=== PATIENT | male | born 2000 | race African-American/Black ===

== ENCOUNTER 2022-07-24 23:01 | Emergency (ER) | payer SELFPAY ==
[2022-07-24 23:02] VITALS: BP 138/86; PULSE 70; RESP 16; TEMP 36.7; O2SAT 98; BMI 27.7
--- NOTE | 2022-07-24 23:34 | CT_ITS ---
EXAM: CT ABDOMEN AND PELVIS WITH INTRAVENOUS CONTRAST CLINICAL INDICATION: RLQ pain TECHNIQUE: Helically acquired images were obtained of the abdomen and pelvis with intravenous contrast. This CT exam was performed using one or more of the following dose reduction techniques: automated exposure control, adjustment of the mA and/or kV according to patient size, and/or use of iterative reconstruction technique. This report was created using [employer] report generation technology. CONTRAST: IV 100mL [id number]-370 RADIATION DOSE: Total DLP: 971.37 mGy-cm. COMPARISON: None. FINDINGS: LOWER THORAX: Unremarkable. Lung bases are clear. No cardiomegaly. No significant pericardial effusion. ABDOMEN: LIVER: Mild periportal lucency noted within the liver, a nonspecific finding which can be due to rapid hydration. GALLBLADDER AND BILE DUCTS: Gallbladder is partially contracted. No calcified gallstones, wall thickening, pericholecystic stranding or biliary ductal dilatation. PANCREAS: Unremarkable. No focal cystic or solid mass. SPLEEN: Unremarkable. Normal size without focal cystic or solid mass. ADRENALS: Unremarkable. No nodules. KIDNEYS AND URETERS: Unremarkable. Normal renal size and position. No hydronephrosis. No renal or obstructing ureteral stones. STOMACH AND BOWEL: Unremarkable. No stomach or bowel distention. No focal inflammatory change. PELVIS: APPENDIX: The appendix is visualized and is normal in size. The appendix contains gas and retained high-density material. No findings of acute appendicitis. BLADDER: The partially distended urinary bladder is unremarkable. REPRODUCTIVE: Unremarkable as visualized. No mass. ABDOMEN and PELVIS: INTRAPERITONEAL SPACE: Minimal amount of nonspecific low-density free fluid is seen within the pelvis. No free air. BONES/JOINTS: Unremarkable. No suspicious lytic or blastic abnormality. SOFT TISSUES: Unremarkable. No discrete abdominal or pelvic wall hernia. VASCULATURE: Unremarkable. Abdominal aorta is non-dilated. LYMPH NODES: Multiple normal-sized lymph nodes are seen within the right lower quadrant, including pericecal nodes and nodes ventral to the right iliopsoas muscle. CT/Abdomen/Pelvis W IV Cont ONLY IMPRESSION: Normal appendix. Multiple small right lower quadrant lymph nodes, consistent with mesenteric adenitis. Electronically Signed: Stephen Lowe MD at 0:38 EDT ,
--- NOTE | 2022-07-24 23:35 | EDS_ITS ---
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 Patient states on Friday he developed a generalized abdominal ache. He states its been painful to run at football practice. Today he notes nausea that is mild. He noted that earlier he had a bowel movement that appeared normal but then developed diarrhea. He noted that on Friday he had fever. He went to the wellness center was given Pepto-Bismol but stated that seem to make things worse. He points to the generalized abdomen as the area that hurts. He denies any urinary symptoms. He denies any obvious abdominal trauma. PFSH PFSH Medical History no medical history no medical history Home Medications NK 07/24/22 [History Last Taken Unknown] Allergy/AdvReac Type Severity Reaction Status Date / Time No Known Allergies Allergy Verified 07/24/22 23:05 Surgical History no surgical history no surgical history Social History (Updated 07/24/22 @ 23:[address] Barry Lyn, DO) current occupational status: student Smoking Status: Never smoker ROS ROS ED Constitutional Constitutional ED: Denies chills or weight loss Eyes Eyes: Denies change in vision or diplopia ENT ENT ED: Denies ear pain, rhinorrhea or sore throat Cardiovascular Cardiovascular: Denies chest pain, orthopnea, palpitations or racing heartbeat Respiratory/Chest Respiratory/Chest: Denies cough, dyspnea or orthopnea Gastrointestinal Gastrointestinal: Reports abdominal pain, diarrhea and nausea; Denies constipation or vomiting Genitourinary Genitourinary ED: Denies dysuria, hematuria or urinary frequency Musculoskeletal Musculoskeletal: Denies arthralgias or myalgias Integumentary Denies abscess or rash Neurologic Neurologic: Denies headache(s) or weakness Psychiatric Psychiatric: Denies anxiety, depression, suicidal ideation or suicidal thoughts Endocrine Endocrinology: Denies polydipsia, polyphagia or polyuria Allergic/Immunologic Allergic/Immunologic ED: Denies mouth swelling, tongue swelling or urticaria EXAM Physical Exam Const Vital Signs: 07/24/22 23:02 Temperature 98.1 F Temperature Source Temporal Pulse Rate 70 Respiratory Rate 16 Blood Pressure 138/86 H Blood Pressure Mean 103 Pulse Ox 98 Oxygen Delivery Method Room Air Positive well nourished and well developed General Appearance ED: well developed HEENT Reports normocephalic, head/scalp atraumatic and moist mucous membranes Eyes PERRL and EOMs intact bilaterally Neck no lymphadenopathy, supple and no JVD Resp normal respiratory effort and clear to auscultation bilaterally Cardio regular rate, regular rhythm and no murmurs GI Negative for hepatosplenomegaly Inspection: Negative for abdominal distention Auscultation: normoactive bowel sounds Palpation: soft and tender RLQ; Negative for guarding or rebound tenderness present Back/Spine no CVA tenderness and normal ROM Extremity normal to inspection General Extremety ED: Negative for edema General Extremity: Negative for edema Neuro oriented x3 and CN's II-XII intact bilaterally Sensorium / Orientation: alert Motor Exam: strength 5/5 throughout Psych mental status grossly normal Mood & Affect: Negative for depressed or tearful Skin no rashes or lesions noted and no wounds MDM MDM MDM Narrative Medical decision making narrative: Patient's white count is 5.8. CMP shows a AST of 43 and alk phos of 129. Because of the right lower quadrant abdominal pain a CT of the abdomen pelvis was obtained. This was negative for appendicitis. It did show several enlarged lymph nodes consistent with a mesenteric adenitis. At this time I think the patient can be discharged safely home. Instructions for anti-inflammatories or Tylenol for pain. Hydration return if worsening or concerns. He was advised he may continue to have diarrhea until the viral illness is resolved. Lab Data Attestation: I reviewed the patient's lab results. Labs: Laboratory Results - last 24 hr 07/24/22 07/24/22 23:22 23:22 WBC 5.8 RBC 5.11 Hgb 13.3 Hct 40.0 MCV 78.3 L MCH 26.0 L MCHC 33.3 RDW Std Deviation 39.7 RDW Coeff of Jackie 14.0 Plt Count 266 MPV 10.1 Immature Gran % (Auto) 0.200 Neut % (Auto) 61.1 Lymph % (Auto) 27.5 [place] % (Auto) 8.6 Eos % (Auto) 2.1 Baso % (Auto) 0.5 Absolute Neuts (auto) 3.6 Absolute Lymphs (auto) 1.60 Nucleated RBC % 0 Sodium 139 Potassium 3.9 Chloride 106 Carbon Dioxide 29.0 Anion Gap 4 L BUN 10 Creatinine 1.09 Estim Creat Clear Calc 124.64 Est GFR (MDRD) Af Amer 110 Est GFR (MDRD) Non-Af 91 BUN/Creatinine Ratio 9.2 L Glucose 101 Calcium 8.8 Total Bilirubin 0.30 AST 43 H ALT 37 Alkaline Phosphatase 129 H Total Protein 7.4 Albumin 3.8 Globulin 3.6 Albumin/Globulin Ratio 1.1 Lipase 86 Radiography Diagnostic Testing: Clinical Impression(s) from Imaging Studies Abdomen/Pelvis CT 07/24/22 23:34 IMPRESSION: Normal appendix. Multiple small right lower quadrant lymph nodes, consistent with mesenteric adenitis. Electronically Signed: Stephen Lowe MD at 0:38 EDT , Discharge Plan Triage Chief Complaint: Abd Pain ED Provider: Barry Lyn Dx/Rx/DC Orders Clinical Impression: Abdominal pain, Nausea, Acute mesenteric adenitis Instructions: ED Adenitis, Mesenteric Prescriptions: No Action NK Primary Care Provider: Care Physician,No Primary Disposition Disposition: Home, Self Care
[2022-07-24] MEDS: Ketorolac 30 MG/ML Syringe IV (23:39)
[2022-07-24 23:45] LABS: Absolute Neutrophil Count 3.6 X10^3/uL (2.0-7.7); Basophil# 0.03 X10^3/uL; Basophil% 0.5 % (0-1); Eosinophil# 0.12 X10^3/uL; Eosinophils% 2.1 % (0-5); Hemoglobin 13.3 g/dL (13.0-16.5); Lymphocyte % 27.5 % (19-41); Mean Corp Hgb Conc 33.3 g/dL (32-36); Mean Corpuscular Volume 78.3 fL (80-94); Mean Platelet Vol. 10.1 fl (6.2-12.0); Monocyte% 8.6 % (0-10); NRBC Flagged by Analyzer 0 % (0-5); Neutrophil # 3.56 X10^3/uL (2.7-7.7); Neutrophil % 61.1 % (47-70); Platelet Count 266 K/mm3 (150-450); RBC Distribution Width SD 39.7 fl (35.1-43.9); Red Blood Count 5.11 M/mm3 (4.6-6.2); White Blood Count 5.8 K/mm3 (4.4-11.0)
[2022-07-25 00:12] LABS: ALB/GLOB Ratio 1.1 RATIO (0.9-2.4); AST(SGOT) 43 U/L (15-37); Alanine Aminotransfer ALT/SGPT 37 U/L (16-61); Albumin, Serum 3.8 g/dL (3.2-5.0); Alkaline Phosphatase 129 U/L (45-117); Anion Gap 4 (5-15); BUN 10 mg/dL (7-18); BUN/Creat Ratio 9.2 RATIO (10-20); Calcium,Total 8.8 mg/dL (8.5-10.1); Chloride 106 mmol/L (98-107); Creatinine, Serum 1.09 mg/dL (0.70-1.30); EST Glomerular Filtration Rate 91 mL/min (>60); Est Glom Filt Rate - Afr Amer 110 mL/min (>60); Estimated Creatinine Clearance 124.64 ml/min; Globulin 3.6 g/dL (2.2-4.2); Glucose 101 mg/dL (74-106); Lipase 86 U/L (73-393); Potassium 3.9 mmol/L (3.5-5.1); Protein, Total 7.4 g/dL (6.4-8.2); Sodium Level 139 mmol/L (136-145)
[2022-07-25 00:51] VITALS: BP 122/74; PULSE 68; RESP 17; O2SAT 98
== END 2022-07-25 00:51 | disposition home or self-care (01) ==
PROVIDERS: Emergency Provider Emergency Medicine; Visit Provider Emergency Medicine
DX: R10.9 Unspecified abdominal pain (principal); R11.0 Nausea; I88.0 Nonspecific mesenteric lymphadenitis
CPT/HCPCS: 74177; 80053; 83690; 85025; 96374; 99282; Q9967; A4216

== ENCOUNTER 2022-08-06 15:10 | Emergency (ER) | payer SELFPAY ==
[2022-08-06] VITALS (10 sets, daily range): BP systolic 132–175; BP diastolic 70–90; PULSE 69–90; RESP 12–27; TEMP 36.1; O2SAT 99–100; BMI 27.8
--- NOTE | 2022-08-06 15:24 | EX.ED.SAOD ---
HPI History of Present Illness Chief Complaint: Overdose Informant: patient and friend Onset/Context/Timing Onset: Today Context: Sudden Onset Timing: Continuous Worsened by: Nothing Relieved by: Nothing Associated Symptoms Associated Symptoms: Positive for suicidal ideation; Negative for vomiting*, diarrhea*, fever*, rash*, seizure, tremor, palpatations, change in mental status, trauma or homicidal ideation Narrative Narrative: Patient present after taking approximately 30 Unisom tablets. Patient states he took them because I have a lot of things going on. Patient states he is under a lot of stress. Patient states he took these approximately 30 minutes prior to arrival. Patient states he feels sleepy. Patient denies any fevers or chills. Patient denies any abdominal pain. Patient denies any nausea or vomiting. Patient denies any chest pain or shortness of breath. [facility] Medical History (Updated 08/06/22 @ 22:[address] Pardeep Dillon DO) No acute medical problems Suicidal ideation Medical History no medical history no medical history Home Medications NK 07/24/22 [History Last Taken Unknown] Allergy/AdvReac Type Severity Reaction Status Date / Time No Known Allergies Allergy Verified 08/06/22 15:16 Surgical History no surgical history no surgical history Social History current occupational status: student Smoking Status: Never smoker ROS ROS ED Constitutional Constitutional ED: Denies chills or fever(s) Eyes Eyes: Denies blurry vision or change in vision ENT ENT ED: Denies rhinorrhea or sore throat Cardiovascular Cardiovascular: Denies chest pain or palpitations Respiratory/Chest Respiratory/Chest: Denies cough or dyspnea Gastrointestinal Gastrointestinal: Denies nausea or vomiting Genitourinary Genitourinary ED: Denies dysuria or hematuria Musculoskeletal Musculoskeletal: Denies back pain or neck pain Integumentary Denies abscess or rash Neurologic Neurologic: Denies headache(s) or weakness Psychiatric Psychiatric: Reports suicidal ideation and suicidal thoughts Allergic/Immunologic Allergic/Immunologic ED: Denies mouth swelling or urticaria EXAM Physical Exam Const Vital Signs: 08/06/22 15:12 08/06/22 15:16 08/06/22 16:16 Temperature 97.0 F L 97.0 F L Temperature Source Temporal Temporal Pulse Rate 90 86 84 Respiratory Rate 27 H 17 16 Blood Pressure 175/90 H 175/90 H 143/70 H Blood Pressure Mean 118 118 94 Pulse Ox 100 100 100 Oxygen Delivery Method Room Air Room Air Room Air 08/06/22 17:23 08/06/22 18:03 08/06/22 19:07 Temperature Temperature Source Pulse Rate 83 Respiratory Rate 16 16 16 Blood Pressure 142/81 H Blood Pressure Mean 101 Pulse Ox 100 Oxygen Delivery Method Room Air Room Air Room Air 08/06/22 20:00 08/06/22 21:07 08/06/22 22:07 Temperature Temperature Source Pulse Rate 69 71 Respiratory Rate 15 12 15 Blood Pressure 132/71 H 145/75 H Blood Pressure Mean 91 98 Pulse Ox 100 99 Oxygen Delivery Method Room Air Room Air Room Air Positive well nourished and well developed General Appearance ED: well developed HEENT Reports moist mucous membranes Neck supple and no JVD Resp normal respiratory effort and clear to auscultation bilaterally Cardio regular rate, regular rhythm and no murmurs GI normal to inspection, nondistended, normoactive bowel sounds and non-tender Palpation: soft Extremity normal to inspection General Extremety ED: Negative for edema or tenderness General Extremity: Negative for edema Neuro oriented x3, CN's II-XII intact bilaterally and no sensory deficits noted Sensorium / Orientation: alert Motor Exam: strength 5/5 throughout Psych Attitude: withdrawn Activity / Motor Behavior: avoids eye contact Speech: soft Mood & Affect: depressed and flat affect Skin no rashes or lesions noted MDM MDM MDM Narrative Medical decision making narrative: Suicide precautions were maintained. EKG was obtained. On my interpretation, it shows a normal sinus rhythm with a rate of 97. NH interval, QRS interval, and QTc intervals are within normal limits. [place] is normal. There are nonspecific ST-T wave changes in the inferior leads. There are no prior EKGs available for comparison. CBC was within normal limits. Comprehensive metabolic profile was within normal limits. Salicylate level was normal. Urinalysis does not show any evidence of urinary tract infection or hematuria. Urine tox screen was negative. Serum alcohol level was normal. Acetaminophen level was ordered and is pending. Patient denies taking any acetaminophen. On reevaluation after observation for 6 hours, patient is showing no signs of anticholinergic toxidrome. Social work evaluated the patient and felt that the patient would need inpatient treatment. [facility]. Patient is medically cleared for psychiatric placement. Patient will need to be transferred to [facility] when he is accepted there and a bed becomes available. Patient understands and is agreeable with the plan. All questions were answered. Lab Data Attestation: I reviewed the patient's lab results. Labs: Laboratory Results - last 24 hr 08/06/22 08/06/22 08/06/22 15:54 15:54 15:54 WBC 6.1 RBC 5.52 Hgb 14.4 Hct 43.3 MCV 78.4 L MCH 26.1 L MCHC 33.3 RDW Std Deviation 40.8 RDW Coeff of Jackie 14.3 Plt Count 339 MPV 9.5 Immature Gran % (Auto) 0.300 Neut % (Auto) 54.4 Lymph % (Auto) 35.9 [place] % (Auto) 8.4 Eos % (Auto) 0.5 Baso % (Auto) 0.5 Absolute Neuts (auto) 3.3 Absolute Lymphs (auto) 2.18 Nucleated RBC % 0 Sodium 141 Potassium 3.5 Chloride 106 Carbon Dioxide 27.0 Anion Gap 8 BUN 13 Creatinine 1.23 Estim Creat Clear Calc 110.45 Est GFR (MDRD) Af Amer 95 Est GFR (MDRD) Non-Af 79 BUN/Creatinine Ratio 10.6 Glucose 140 H Calcium 9.5 Total Bilirubin 0.40 Direct Bilirubin AST 20 ALT 32 Alkaline Phosphatase 155 H Total Protein 8.4 H Albumin 4.4 Globulin 4.0 Albumin/Globulin Ratio 1.1 Urine Color Urine Clarity Urine pH Ur Specific [place] Urine Protein Urine Glucose (UA) Urine Ketones Urine Occult Blood Urine Nitrite Urine Bilirubin Urine Urobilinogen Ur Leukocyte Esterase Urine RBC Urine WBC Ur Squamous Epith Cells Urine Bacteria Urine Mucus Salicylates < 1.7 L Urine Opiates Screen Urine Methadone Screen Acetaminophen Cancelled Ur Barbiturates Screen Ur Phencyclidine Scrn Ur Amphetamines Screen MDMA (Ecstasy) Screen U Benzodiazepines Scrn Urine Cocaine Screen U Cannabinoids Screen Ur Drug Screen Comment Ethyl Alcohol < 3.0 08/06/22 08/06/22 08/06/22 15:54 16:08 16:08 WBC RBC Hgb Hct MCV MCH MCHC RDW Std Deviation RDW Coeff of Jackie Plt Count MPV Immature Gran % (Auto) Neut % (Auto) Lymph % (Auto) [place] % (Auto) Eos % (Auto) Baso % (Auto) Absolute Neuts (auto) Absolute Lymphs (auto) Nucleated RBC % Sodium Potassium Chloride Carbon Dioxide Anion Gap BUN Creatinine Estim Creat Clear Calc Est GFR (MDRD) Af Amer Est GFR (MDRD) Non-Af BUN/Creatinine Ratio Glucose Calcium Total Bilirubin 0.40 Direct Bilirubin 0.14 AST 22 ALT 31 Alkaline Phosphatase 157 H Total Protein 8.3 H Albumin 4.4 Globulin 3.9 Albumin/Globulin Ratio Urine Color Yellow Urine Clarity Clear Urine pH 6.0 Ur Specific [place] 1.010 Urine Protein Negative Urine Glucose (UA) Normal Urine Ketones Negative Urine Occult Blood Negative Urine Nitrite Negative Urine Bilirubin Negative Urine Urobilinogen Normal Ur Leukocyte Esterase 100 H Urine RBC 0 SEEN Urine WBC 0-5 SEEN Ur Squamous Epith Cells 0 SEEN Urine Bacteria 0 SEEN Urine Mucus 0 SEEN Salicylates Urine Opiates Screen NEGATIVE Urine Methadone Screen NEGATIVE Acetaminophen Ur Barbiturates Screen NEGATIVE Ur Phencyclidine Scrn NEGATIVE Ur Amphetamines Screen NEGATIVE MDMA (Ecstasy) Screen NEGATIVE U Benzodiazepines Scrn NEGATIVE Urine Cocaine Screen NEGATIVE U Cannabinoids Screen NEGATIVE Ur Drug Screen Comment Ethyl Alcohol Discharge Plan Triage Chief Complaint: Overdose ED Provider: Pardeep Dillon Dx/Rx/DC Orders Clinical Impression: Suicidal ideation, Anticholinergic drug overdose, Major depression Prescriptions: No Action NK Primary Care Provider: Mendel Devlin Referrals: Care Physician,No Primary [Non-Staff] - Disposition Disposition: Psychiatric Hospital or Unit Discharge Location: [facility]
--- NOTE | 2022-08-06 15:32 | EKG12_ITS ---
Test Reason : OD Blood Pressure : / mmHG Vent. Rate : 097 BPM Atrial Rate : 097 BPM P-R Int : 146 ms QRS Dur : 100 ms QT Int : 374 ms P-R-T Axes : 056 079 000 degrees QTc Int : 474 ms Normal sinus rhythm Nonspecific ST-T Changes Prolonged QT Abnormal ECG No previous ECGs available Confirmed by ANGEL BRAND, MUNA ([id number]), film and video editor BRANDON BLAS ([id number]) on 08/08/2022 1:02:43 PM Referred By: NAOMI Confirmed By:HUMPHREY ORTIZ MD
--- NOTE | 2022-08-06 15:40 | NURSING ---
NO OLD EKGS
[2022-08-06 16:08] LABS: Absolute Lymphocyte Count 2.18 X10^3/uL (0.83-4.51); Absolute Neutrophil Count 3.3 X10^3/uL (2.0-7.7); Basophil# 0.03 X10^3/uL; Basophil% 0.5 % (0-1); Eosinophil# 0.03 X10^3/uL; Eosinophils% 0.5 % (0-5); Hematocrit 43.3 % (40-54); Hemoglobin 14.4 g/dL (13.0-16.5); Lymphocyte # 2.18 X10^3/ul (0.83-4.51); Lymphocyte % 35.9 % (19-41); Mean Corp Hgb Conc 33.3 g/dL (32-36); Mean Corpuscular Hgb 26.1 pg (27.0-32.0); Mean Corpuscular Volume 78.4 fL (80-94); Mean Platelet Vol. 9.5 fl (6.2-12.0); Monocyte# 0.51 X10^3/uL; Monocyte% 8.4 % (0-10); NRBC Flagged by Analyzer 0 % (0-5); Neutrophil # 3.31 X10^3/uL (2.7-7.7); Neutrophil % 54.4 % (47-70); Platelet Count 339 K/mm3 (150-450); RBC Distribution Width CV 14.3 % (11.6-14.6); RBC Distribution Width SD 40.8 fl (35.1-43.9); Red Blood Count 5.52 M/mm3 (4.6-6.2); White Blood Count 6.1 K/mm3 (4.4-11.0)
[2022-08-06 16:14] LABS: Bacteria 0 SEEN /hpf (None Seen); Mucous, Urine 0 SEEN /hpf (<or=2+); Red Blood Cells-Urine 0 SEEN /hpf (0-5); Squamous Epithelial Cells - UA 0 SEEN /hpf (0-5)
[2022-08-06 16:21] LABS: Color, Urine Yellow (Yellow); Glucose, Dipstick Normal (Normal); Ketone-Dipstick Negative (Negative); Leukocyte Esterase-Dipstick 100 /ul (Negative); Nitrite-Dipstick Negative (Negative); Occult Blood-Urine Negative /ul (Negative); Protein-Dipstick Negative (Negative); Urine Bilirubin Dipstick Negative (Negative); Urine Clarity Clear (Clear); Urine Urobilinogen Normal (Normal)
[2022-08-06 16:27] LABS: ALB/GLOB Ratio 1.1 RATIO (0.9-2.4); AST(SGOT) 20 U/L (15-37); Alanine Aminotransfer ALT/SGPT 32 U/L (16-61); Albumin, Serum 4.4 g/dL (3.2-5.0); Alkaline Phosphatase 155 U/L (45-117); Anion Gap 8 (5-15); BUN 13 mg/dL (7-18); BUN/Creat Ratio 10.6 RATIO (10-20); Calcium,Total 9.5 mg/dL (8.5-10.1); Chloride 106 mmol/L (98-107); Creatinine, Serum 1.23 mg/dL (0.70-1.30); EST Glomerular Filtration Rate 79 mL/min (>60); Est Glom Filt Rate - Afr Amer 95 mL/min (>60); Estimated Creatinine Clearance 110.45 ml/min; Glucose 140 mg/dL (74-106); Potassium 3.5 mmol/L (3.5-5.1); Protein, Total 8.4 g/dL (6.4-8.2); Sodium Level 141 mmol/L (136-145)
[2022-08-06 16:32] LABS: White Blood Cells 0-5 SEEN /hpf (0-5)
[2022-08-06 17:02] LABS: Amphetamine Urine VISTA NEGATIVE (<1000 ng/mL); Barbiturate Urine VISTA NEGATIVE (< 200 ng/mL); Benzodiazepine Urine VISTA NEGATIVE (< 200 ng/mL); Cocaine Urine VISTA NEGATIVE (< 300 ng/mL); Ecstacy Urine VISTA NEGATIVE (< 500 ng/mL); Methadone Urine VISTA NEGATIVE (< 300 ng/mL); PCP Urine VISTA NEGATIVE (< 25 ng/mL); THC Urine VISTA NEGATIVE (< 50 ng/mL); Vista UDS pH Range 6
[2022-08-06 17:40] LABS: Alcohol, Blood (Medical)-Serum < 3.0 mg/dL; Salicylate < 1.7 mg/dL (2.8-20.0)
--- NOTE | 2022-08-06 18:15 | ED.RN ---
THIS RN CALLED LAB AT 1750 AND SPOKE TO ROLANDO TO CHECK ON ACETAMINOPHEN LAB VALUE. LAB REPORTS THAT CHEMISTRY UNABLE TO RUN HERE AND SPECIMEN SENT TO [facility]. DR. FOWLER NOTIFIED AND ASKED THIS RN TO CALL BACK AND ASK FOR A TIMEFRAME. ROLANDO FROM LAB CALLED BACK TO SAY [facility] DID NOT GIVE TIMEFRAME. DR. FOWLER NOTIFIED AT [id number].
--- NOTE | 2022-08-06 18:25 | CM.ED ---
SW was advised by that patient will need awhile to be medically clear. SW briefly spoke to patient and updated him that this medical technical writer or crisis will speak to him. EL called [facility]. They do not take out of state medicaid. EL called Elizabeth at [facility]. They don't work with out of state medicaid. SW called [facility] and spoke to Socoror. They will speak to social workers about if they take [place] Medicaid. SW called [facility]. Staff advised that they do not take out of state medicaid. SW called [facility] and spoke t Sakshi and she said that they do not take any out of state medicaid. SW called [facility] and spoke to Nola. Nola said that if patient has out of state medicaid and are in their ED they work with patient however, they do not take patient's from outside hospital with out of state medicaid. Plus, they have no bed. EL called Christine at [facility]. They do not take [place] medicaid and said that they refer [place] of state patient's to [place]. EL called Jeannette at [facility]. For out of state medicaid they need to contact [facility] after the assessment is completed and after patient is medically cleared. Lilli SALDAÑA
--- NOTE | 2022-08-06 19:28 | CM.ED ---
Addendum entered by Lilli Alejandrader 08/06/22 19:55: Patient presented to the ED as the police were dispatched to [facility] at the [facility] for a male that had recently attempted suicide. Upon my arriva I met with Brian Deleon. Brian recently went through a breakup and explained that he took several sleeping medications in an attempt to kill himself. Diagnosis: Major Depressive Disorder Lilli Bowling COMPREHENSIVE ADVISOR LISWS Original Note: EL Note Referral Source: MD Referral Reason: Suicide Attempt SW met with patient and his friend, Endy, in ED room 4. Patient gave this automatic typewriter inspector verbal consent to speak to him in the presence of his friend and requested his friend stay in the room. Patient said I got alot going on... school.. not transitioning with life after a relationship ended and life after college. Patient said that his girlfriend left him and he felt nothing really matters. Patient and his girlfriend, Freda, had been together for 11 months. Patient said that he and Freda broke up last week and tried to work it out. SW asked patient if there was a trigger and patient said I felt like life had no meaning or purpose. SW asked patient if he wanted to and he said I did.. but I also regret it. Marital Status: Single Identified Gender: Male Sexual Orientation: Heterosexual Living Situation: [facility]. [facility] Support/Resource: Patient voices that he doesn't talk to anybody... I won't talk History: None Education and Employment History: Patient graduated high school. No learning issues. 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 Mental Health Treatment and Counseling: Patient reports he went to [facility] (AOD treatment) approximately 1 year ago. Patient said that he has done individual teletherapy through the [facility] with the last session being 2-3 weeks ago. Patient said that last week he and his ex girlfriend, Freda, went to couples counseling 1x. Patient reports he has never had psych hospitalization. He reports no current psychiatric medication. Patient said that schizophrenia and anxiety run in his family. Patient said that his dad has schizophrenia but he is unsure if he has been hospitalized. Triggers and Stressors: Patient said relationship ending, people giving up... people stop fighting and giving up. 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 Patient said that previously he would do cbd oil, hot tea or a glass of wine. However, patient reports he is sober and when asked how long he has been sober he said stopped counting but said it was at the beginning of the summer. Patient said that currently he drinks hot tea. Abuse Issues: Patient denied history or physical, sexual or emotional abuse. Substance Abuse: Patient reports I don't do wine or CBD. Risk to Self and Others Suicidal: Patient said that he overdosed after he and Freda spoke today. Patient said it really wasn't her fault.. everything in my life is overwhelming.. not her.. everything. Plans: Patient said that he began researching how to complete suicide before the semester started. Patient said that he researched on line today how to take a lethal dose. Patient denied HI and Violence to self, others and objects. Patient said that before he went to sleep after the OD he saw what looked like smoke and I was hallucinating intensely. Patient said it was peaceful when I OD. Patient said that heheard noised and that he was being talked to but couldn't understand it. Patient said it could be the drug. SW asked patient about hallucinations prior to his OD today and patient said it was light hallucinations.. normal stuff. SW asked patient to explain and he said just like did you say something and things moved. MSE Orientation x4 Memory: Good Appearance: Clean and Appropriate Mood and Affect: Depressed mood with flat affect. Tearful at times during the assessment. Communication Pattern: Responds to questions Thought Process: Appropriate. No evidence of AH/VH Insight: Fair Judgement: Poor SW spoke to MD Dillon to consult on the case and he agrees that patient needs inpatient psych hospitalization for crisis stabilization and med management. Plan: Inpatient psych
--- NOTE | 2022-08-06 20:02 | CM.ED ---
EL called Blu at [facility]. Blu said that they need the referral packet and the diagnosis and then fax packet to [phone]. Once patient is approved he will go to [place]. EL asked about visitor policy and Blu said that they had alot of covid so he assume that there is no visitors. EL spoke to Vic and requested EKG and all [place] lab work to be completed for patient. EL called Jeannette at [facility] and updated her regarding the situation. She requested the referral be faxed to her. EL faxed the referral packet to her. Vic RN advised that patient's final lab work is not bad yet. When all lab work is back and MD notes state that patient is medically clear the referral packet needs to be faxed to [facility] at [phone] Plan: Inpatient psych
[2022-08-06 20:35] LABS: AST(SGOT) 22 U/L (15-37); Alanine Aminotransfer ALT/SGPT 31 U/L (16-61); Albumin, Serum 4.4 g/dL (3.2-5.0); Alkaline Phosphatase 157 U/L (45-117); Bilirubin, Direct 0.14 mg/dL (0.00-0.30); Globulin 3.9 g/dL (2.2-4.2); Protein, Total 8.3 g/dL (6.4-8.2)
--- NOTE | 2022-08-06 20:51 | ED.RN ---
Poison control called requesting update. Update given. Poison control stating they are closing case. Requesting to be called if Tylenol level comes back elevated.
[2022-08-06 22:45] LABS: Acetaminophen (Tylenol) Level < 2.0 ug/mL (10.0-30.0)
--- NOTE | 2022-08-06 23:06 | ED.RN ---
[facility] called back and spoke to [facility], they currently have no male beds at this time. Therefore no bed placement at this time. Social work and enid will have to follow up in the morning to check bed status at [facility]. full chart faxed to [facility] at this time
--- NOTE | 2022-08-06 23:37 | ED.RN ---
THIS RN SPOKE TO PTS BROTHER AT [id number]. PTS BROTHER REQUESTS NURSE ON STAFF CALLS HIM WHEN PT IS TRANSPORTED. PTS BROTHER IS DINO COTTON PHONE NUMBER [phone].
[2022-08-07] VITALS (17 sets, daily range): BP systolic 99–147; BP diastolic 51–78; PULSE 52–71; RESP 14–19; TEMP 36.6; O2SAT 97–100
--- NOTE | 2022-08-07 04:41 | ED.RN ---
SEE DOWN TIME CHARTING FROM [phone]
--- NOTE | 2022-08-07 10:11 | CM.ED ---
EL Note EL received voice mail from Jeannette stating that patient needs bed days [facility] EL called Ashlee at [facility]. She was on the phone with the hospital. EL was updated by bankman Stacey who stated that she spoke to Ashlee at [facility]. EL called Ashlee at [facility]. Ashlee said that she needs to check with Gisela regarding patient and placement. Plan: Inpatient psych Lilli SALDAÑA
--- NOTE | 2022-08-07 10:23 | CM.ED ---
Addendum entered by Lilli Bowling 08/07/22 11:37: EL called Navya at 11:35am anad again voice mail said that person can't accept calls. Original Note: Late Entry:EL met with patient On 08/06/22 he gave verbal consent to speak to [facility] personal and update him on his status. SW received call from a woman identifying herself as his fiance'. She inquired as to if patient had been transferred and where he had gone. As this song writer did not have a TED so worker advised that this song writer will call her back. She provided number of [phone]. EL met with patient. He gave consent to talk to Navya, his ex girlfriend. EL called Navya's number [phone]. EL called number 2 x and the voicwemail said that it cannot accept calls at this time. Lilli SALDAÑA
--- NOTE | 2022-08-07 14:25 | CM.ED ---
Addendum entered by Lilli Bowling 08/07/22 16:17: EL contacted Ashlee and asked for an update. No response. EL contacted Gisela. She had no update. EL received call from Gisela. She said that since the are requesting state funds that the [facility] needs to do the assessment. Gisela said that Patricia can do it but she will be doing it from home as she is sick. EL advised that was fine. EL updated strategy planning consultant Mckenna and JOANNA Monzon. EL updated patient. EL advised that Tamara Benitez from [facility] had called and requested update and health care social worker provided it. SW asked about his girlfriend/ex girlfriend/ fiance phone number and he said that he did not know it. EL updated patient that [facility] would be calling him for an assessment. EL updated Gail Burr. Addendum entered by Lilli Bowling 08/07/22 14:35: Tamara Benitez, interim director at the [facility] at the [facility]. Patient had given this narrative writer verbal consent to speak to [facility] staff. EL updated that patient is still at the ED awaiting placement. Plan: Inpatient psych Lilli SALDAÑA Original Note: EL Note EL called Ashlee at [facility]. She said that she spoke to Melba at [place], who was a field pipelines supervisor, and Melba said that she had not received the information so Ashlee had faxed it to her. EL asked Ashlee to follow up with Merrick. Lilli SALDAÑA
--- NOTE | 2022-08-07 18:59 | CM.ED ---
EL Note EL called Jeannette and spoke to Jeannette. She reports that she faxed the social sciences instructor assessment from [facility] to Melba at [place]. EL called Melba at [place] [phone]. Melba said that she never got the fax. EL confirmed the fax number [phone]. Melba said that they first must have to attempt [facility] for patient and if the wait list is to long at [facility] then they can look at other options. EL called Jeannette at [facility] again and she said that she had faxed the assessment and had gotten a fax confirmation sheet. She stated that she will refax the assessment to [facility]. Lilli SALDAÑA
--- NOTE | 2022-08-07 20:03 | CM.ED ---
EL Note EL called Melba at [place] 2x. EL left message after calling the first time. EL did not leave voicemail the second time because I had already left a voice mail on the previous contact. EL called Jeannette at [facility]. She is not available. EL left message to contact this commercial underwriter. Lilli SALDAÑA
[2022-08-08] VITALS (17 sets, daily range): BP systolic 129–138; BP diastolic 67–74; PULSE 61–91; RESP 14–18; TEMP 36.8; O2SAT 99–100
--- NOTE | 2022-08-08 09:56 | CM.ED ---
Social Work Emergency Department Spoke with Gisela from [facility] who reports Merrick gave approval for patient to go go [facility]. Gisela reports to have spoken to Edith at [facility] and patient is next on the list for admission. Anticipate bed opening for patient later today. ED staff aware of this update as well. Plan: [facility] pending bed availability. -PIOTR Cornejo, FORENSICS TEAM DIRECTOR
--- NOTE | 2022-08-08 11:17 | ED.RN ---
BAG OF PILLS FOUND WITH PATIENT, DAVE AUGUSTE REMOVED FROM ROOM AND PLACED WITH BELONGINGS
--- NOTE | 2022-08-08 12:37 | ED.RN ---
[facility] called and requested vital signs for yesterday and today
--- NOTE | 2022-08-08 14:16 | NURSING ---
SPOKE WITH CRISTIAN FROM [facility] ETA OF 90 MINUTES AT THIS TIME
--- NOTE | 2022-08-09 10:47 | CM.ED ---
EL called Ashlee at [facility]. Ashlee said that patient went to [facility]. EL received voice mail from Tamara Benitez at [facility] and Chrissy Hinojosa, counselor at [facility] regarding patient. EL called Tamara Benitez on her personal phone [phone].NO answer and voicemail said that the voicemail was full. EL called Meli Hinojosa at [phone]. EL updated Meli that patient was accepted at [facility] in [place]. Plan: [facility] for patient Lilli Dash SALDAÑA
== END 2022-08-08 16:24 ==
PROVIDERS: Emergency Provider Emergency Medicine; PCP Pediatrics; Visit Provider Emergency Medicine
DX: T44.3X4A Poisoning by other parasympatholytics [anticholinergics and antimuscarinics] and spasmolytics, undetermined, initial encounter (principal); R45.851 Suicidal ideations; F32.9 Major depressive disorder, single episode, unspecified
CPT/HCPCS: 80053; 80076; 80307; 80329; 81001; 82077; 85025; 87811; 93005; 99285; A4216; G0480

== ENCOUNTER 2023-04-26 03:44 | Emergency (ER) | payer SELFPAY ==
[2023-04-26 03:45] VITALS: BP 168/94; PULSE 121; RESP 18; TEMP 36; O2SAT 100; BMI 31.7
--- NOTE | 2023-04-26 04:09 | EDS_ITS ---
HPI HPI - Psych History of Present Illness Chief Complaint: Mental Health Narrative Narrative: 22-year-old male presenting with altered mental status. His friends called EMS because he was not acting right. His friend states he was little shaky earlier so they gave him some water and he came and went to bed in his room. They kept hearing random noises like things falling. This is why they called EMS because he was just not acting right. The patient denies any drug or alcohol abuse tonight. He states he does use CBD. He is not homicidal or suicidal. He states he has been sleeping better this semester. Patient does tell me that he remembers a time when he was young and he went up to mow the grass that he remembers me picking up a animal that he killed with the mower. When I told him I do not think I would do something like that he stated to me that not you today. Patient does have a history of overdose for suicidal ideations [facility] Medical History No acute medical problems Suicidal ideation Home Medications trazodone 04/26/23 [History Last Taken Unknown] Allergy/AdvReac Type Severity Reaction Status Date / Time No Known Allergies Allergy Verified 04/26/23 03:50 Social History current occupational status: student Smoking Status: Never smoker ROS ROS ED Constitutional Constitutional ED: Denies chills, fever(s) or sweats Eyes Eyes: Denies blurry vision or change in vision ENT ENT ED: Denies ear pain or sore throat Cardiovascular Cardiovascular: Denies chest pain, palpitations or racing heartbeat Respiratory/Chest Respiratory/Chest: Denies cough, dyspnea or sputum Gastrointestinal Gastrointestinal: Denies abdominal pain, constipation, diarrhea, nausea or vomiting Genitourinary Genitourinary ED: Denies dysuria, hematuria or urinary frequency Musculoskeletal Musculoskeletal: Denies arthralgias, myalgias or neck pain Integumentary Denies abscess, Abrasions or rash Neurologic Neurologic: Denies headache(s), paresthesias or weakness Psychiatric Psychiatric: Reports other Details: Confused ; Denies anxiety, depression, suicidal ideation or suicidal thoughts Endocrine Endocrinology: Denies polydipsia or polyuria EXAM Physical Exam Const Vital Signs: 04/26/23 03:45 06/17/23 06:00 Temperature 96.8 F L Temperature Source Temporal Pulse Rate 121 H Respiratory Rate 18 16 Blood Pressure 168/94 H Blood Pressure Mean 118 Pulse Ox 100 Positive well nourished General Appearance ED: NAD; Negative for pallor HEENT Reports moist mucous membranes Eyes PERRL and EOMs intact bilaterally Resp normal respiratory effort Effort and Inspection: Negative for retractions Cardio Rate: tachycardic Rhythm: regular rhythm Neuro oriented x3 and CN's II-XII intact bilaterally Sensorium / Orientation: alert Psych denies hallucinations, denies homicidal ideation and denies suicidal ideation Appearance: bizarre Attitude: withdrawn, bizarre and guarded Speech: slow and delayed Mood & Affect: flat affect Thought Process: disorganized Thought Content: No suicidality, No homicidality and No hallucination(s) Attention / Concentration: attention grossly impaired and concentration grossly impaired Memory / Cognition: cognition grossly intact and cognition impaired Insight: poor Judgement: poor Skin General Skin Exam: Negative for jaundice or pallor MDM MDM MDM Narrative Medical decision making narrative: 22-year-old male coming in with strange behavior for his friends. He is very difficult to redirect. He does not answer questions directly. He does just make the recall seeing me as a child in his yard after he ran over an animal. After I tried to redirect him he states it it was not you today. He avoids eye contact. He denies hallucinations or hearing voices. He denies drug use. He denies alcohol use tonight. He does have a history of suicide attempt by ingestion. I will obtain screening lab work including EtOH, drug abuse screen, salicylates, acetaminophen. EKG was obtained as well because he is tachycardic and shows a sinus rhythm at 110 bpm without signs of ischemic change or ectopy. Rapid COVID-negative. CBC unremarkable. CMP shows a slight increase in his creatinine 1.40 but there is no prerenal azotemia. LFTs are normal with exception of alk phos of 121. Salicylates and acetaminophen are negative. EtOH negative. Electrolytes normal. Urine drug screen negative. Patient medically cleared for crisis evaluation. Patient will be signed out to incoming ED provider for monitoring until crisis can evaluate him. Impression: 1. Acute psychosis Lab Data Labs: Laboratory Results - last 24 hr 04/26/23 04/26/23 04/26/23 04:20 04:20 04:20 WBC 4.6 RBC 5.18 Hgb 13.1 Hct 40.1 MCV 77.4 L MCH 25.3 L MCHC 32.7 RDW Std Deviation 40.6 RDW Coeff of Jackie 14.6 Plt Count 278 MPV 9.0 Immature Gran % (Auto) 0.200 Neut % (Auto) 71.9 H Lymph % (Auto) 18.6 L Lawrence % (Auto) 8.0 Eos % (Auto) 0.4 Baso % (Auto) 0.9 Absolute Neuts (auto) 3.3 Absolute Lymphs (auto) 0.86 Nucleated RBC % 0 Sodium 141 Potassium 3.8 Chloride 108 H Carbon Dioxide 23.0 Anion Gap 10 BUN 8 Creatinine 1.40 H Estim Creat Clear Calc 97.04 Est GFR (MDRD) Af Amer 82 Est GFR (MDRD) Non-Af 68 BUN/Creatinine Ratio 5.7 L Glucose 124 H Calcium 9.1 Total Bilirubin 0.30 AST 30 ALT 33 Alkaline Phosphatase 121 H Total Protein 8.0 Albumin 4.6 Globulin 3.4 Albumin/Globulin Ratio 1.4 Salicylates Urine Opiates Screen Urine Methadone Screen Acetaminophen Ur Barbiturates Screen Ur Phencyclidine Scrn Ur Amphetamines Screen MDMA (Ecstasy) Screen U Benzodiazepines Scrn Urine Cocaine Screen U Cannabinoids Screen Ur Drug Screen Comment Ethyl Alcohol < 3.0 04/26/23 04/26/23 04:20 05:05 WBC RBC Hgb Hct MCV MCH MCHC RDW Std Deviation RDW Coeff of Jackie Plt Count MPV Immature Gran % (Auto) Neut % (Auto) Lymph % (Auto) Lawrence % (Auto) Eos % (Auto) Baso % (Auto) Absolute Neuts (auto) Absolute Lymphs (auto) Nucleated RBC % Sodium Potassium Chloride Carbon Dioxide Anion Gap BUN Creatinine Estim Creat Clear Calc Est GFR (MDRD) Af Amer Est GFR (MDRD) Non-Af BUN/Creatinine Ratio Glucose Calcium Total Bilirubin AST ALT Alkaline Phosphatase Total Protein Albumin Globulin Albumin/Globulin Ratio Salicylates < 1.7 L Urine Opiates Screen NEGATIVE Urine Methadone Screen NEGATIVE Acetaminophen < 2.0 L Ur Barbiturates Screen NEGATIVE Ur Phencyclidine Scrn NEGATIVE Ur Amphetamines Screen NEGATIVE MDMA (Ecstasy) Screen NEGATIVE U Benzodiazepines Scrn NEGATIVE Urine Cocaine Screen NEGATIVE U Cannabinoids Screen NEGATIVE Ur Drug Screen Comment Ethyl Alcohol Discharge Plan Triage Chief Complaint: Mental Health ED Provider: Billy Cole Dx/Rx/DC Orders Prescriptions: No Action trazodone Primary Care Provider: Mendel Devlin Referrals: Mendel Devlin MD [Primary Care Provider] -
--- NOTE | 2023-04-26 04:14 | EKG12_ITS ---
Test Reason : Blood Pressure : / mmHG Vent. Rate : 110 BPM Atrial Rate : 110 BPM P-R Int : 168 ms QRS Dur : 094 ms QT Int : 354 ms P-R-T Axes : 051 061 008 degrees QTc Int : 479 ms Sinus tachycardia Possible Left atrial enlargement Borderline ECG Confirmed by ANGEL BRAND, MUNA ([id number]), news copy editor BRANDON BLAS ([id number]) on 04/28/2023 10:57:54 A M Referred By: Confirmed By:HUMPHREY ORTIZ MD
[2023-04-26 04:30] LABS: Absolute Lymphocyte Count 0.86 X10^3/uL (0.83-4.51); Absolute Neutrophil Count 3.3 X10^3/uL (2.0-7.7); Basophil# 0.04 X10^3/uL; Basophil% 0.9 % (0-1); Eosinophil# 0.02 X10^3/uL; Eosinophils% 0.4 % (0-5); Hematocrit 40.1 % (40-54); Hemoglobin 13.1 g/dL (13.0-16.5); Lymphocyte # 0.86 X10^3/ul (0.83-4.51); Lymphocyte % 18.6 % (19-41); Mean Corp Hgb Conc 32.7 g/dL (32-36); Mean Corpuscular Hgb 25.3 pg (27.0-32.0); Mean Corpuscular Volume 77.4 fL (80-94); Monocyte# 0.37 X10^3/uL; NRBC Flagged by Analyzer 0 % (0-5); Neutrophil # 3.32 X10^3/uL (2.7-7.7); Neutrophil % 71.9 % (47-70); Platelet Count 278 K/mm3 (150-450); RBC Distribution Width CV 14.6 % (11.6-14.6); RBC Distribution Width SD 40.6 fl (35.1-43.9); Red Blood Count 5.18 M/mm3 (4.6-6.2); White Blood Count 4.6 K/mm3 (4.4-11.0)
[2023-04-26 04:50] LABS: ALB/GLOB Ratio 1.4 RATIO (0.9-2.4); AST(SGOT) 30 U/L (15-37); Alanine Aminotransfer ALT/SGPT 33 U/L (16-61); Albumin, Serum 4.6 g/dL (3.2-5.0); Alkaline Phosphatase 121 U/L (45-117); Anion Gap 10 (5-15); BUN 8 mg/dL (7-18); BUN/Creat Ratio 5.7 RATIO (10-20); Calcium,Total 9.1 mg/dL (8.5-10.1); Chloride 108 mmol/L (98-107); EST Glomerular Filtration Rate 68 mL/min (>60); Est Glom Filt Rate - Afr Amer 82 mL/min (>60); Estimated Creatinine Clearance 97.04 ml/min; Globulin 3.4 g/dL (2.2-4.2); Glucose 124 mg/dL (74-106); Potassium 3.8 mmol/L (3.5-5.1); Sodium Level 141 mmol/L (136-145)
[2023-04-26 04:53] LABS: Alcohol, Blood (Medical)-Serum < 3.0 mg/dL
[2023-04-26 05:04] LABS: Acetaminophen (Tylenol) Level < 2.0 ug/mL (10.0-30.0); Salicylate < 1.7 mg/dL (2.8-20.0)
[2023-04-26 05:20] LABS: Amphetamine Urine VISTA NEGATIVE (<1000 ng/mL); Barbiturate Urine VISTA NEGATIVE (< 200 ng/mL); Benzodiazepine Urine VISTA NEGATIVE (< 200 ng/mL); Cocaine Urine VISTA NEGATIVE (< 300 ng/mL); Ecstacy Urine VISTA NEGATIVE (< 500 ng/mL); Methadone Urine VISTA NEGATIVE (< 300 ng/mL); PCP Urine VISTA NEGATIVE (< 25 ng/mL); THC Urine VISTA NEGATIVE (< 50 ng/mL); Vista UDS pH Range 6
--- NOTE | 2023-04-26 05:41 | ED.RN ---
FAXED PTS CHART TO [facility], CALLED ALSO AND GAVE INFO TO ANSWERING SERVICE
[2023-04-26 06:00] VITALS: RESP 16
--- NOTE | 2023-04-26 07:44 | NURSING ---
[facility] IN ROOM
[2023-04-26 09:45] VITALS: BP 148/98; PULSE 87; RESP 16; O2SAT 98
--- NOTE | 2023-04-26 10:02 | NURSING ---
FAXED CHART TO [facility]
[2023-04-26 12:00] VITALS: RESP 16
--- NOTE | 2023-04-26 14:24 | ED.RN ---
PT LOOKING FOR WALLET. NO RECORD OF HAVING WALLET ON HIS PERSON UPON ARRIVAL VIA EMS. CHECKED ROOM, HOLDING AREAS AND SECURITY FOR LOST AND FOUND. OFFERED TO CALL [employer] SECURITY FOR RIDE OR A FRIEND. PT DECLINED. PT HAS CELL PHONE ON HIS PERSON
== END 2023-04-26 14:26 | disposition home or self-care (01) ==
PROVIDERS: Emergency Provider Student in an Organized Health Care Education/Training Program; PCP Pediatrics; Visit Provider Student in an Organized Health Care Education/Training Program
DX: F23 Brief psychotic disorder (principal)
CPT/HCPCS: 80053; 80307; 80329; 82077; 85025; 87426; 93005; 99284; G0480

== ENCOUNTER 2023-12-12 22:47 | Emergency (ER) | payer SELFPAY ==
[2023-12-12 22:47] VITALS: BP 143/88; PULSE 90; RESP 18; TEMP 36.4; O2SAT 100
[2023-12-12 22:48] VITALS: BP 143/88; PULSE 90; RESP 16; TEMP 36.4; O2SAT 100
--- NOTE | 2023-12-12 23:05 | EX.ED.VIS.PS ---
HPI HPI - Psych History of Present Illness Chief Complaint: Suicidal Informant: patient and EMS Narrative Narrative: 23-year-old male presenting to the emergency room with a chief complaint of suicidal plan. Patient states that he has been struggling with mental health. He sees an online psychiatrist. He states that he was recently referred to in person psychiatry to see about getting on stimulants for concentration issues. Patient originally from [facility] [facility] [place]. He has a close small family there including his and his cousin sister and mother. He states that he does feel close with them. 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 He states school has been a struggle than keeping up with his coursework. He notes very poor sleep in terms of maintaining sleep. He states he has a core group of friends here that he hangs out with and is open up to them about his mental health and to him they seem supportive. He states that he has been thinking of suicide and tonight stop trazodone and put in a drink. He states he went to drink it but it tasted bad. He tells me that if it had tasted good he would drink all of it because he truly wanted to end his life. He denies any other self-harm. He has not been taking his medications for about 1 week. [facility] Medical History No acute medical problems Physical exam, pre-employment Suicidal ideation Home Medications trazodone 100 mg PO QHS 04/26/23 [History Last Taken Unknown] aripiprazole 15 mg tablet (Abilify) 15 mg PO DAILY 12/12/23 [History Last Taken Unknown] bupropion HCl 150 mg tablet,12 hr sustained-release (Wellbutrin SR) 150 mg PO DAILY 12/12/23 [History Last Taken Unknown] buspirone 5 mg tablet 5 mg PO BID 12/12/23 [History Last Taken Unknown] Allergy/AdvReac Type Severity Reaction Status Date / Time No Known Allergies Allergy Verified 04/26/23 03:50 Social History current occupational status: student Smoking Status: Current some day smoker tobacco type: e-cigarettes ROS ROS ED Constitutional Constitutional ED: Denies chills, fever(s) or weight loss Eyes Eyes: Denies blurry vision, change in vision or diplopia ENT ENT ED: Denies ear pain, rhinorrhea or sore throat Cardiovascular Cardiovascular: Denies chest pain, orthopnea, palpitations or racing heartbeat Respiratory/Chest Respiratory/Chest: Denies cough, dyspnea or orthopnea Gastrointestinal Gastrointestinal: Denies abdominal pain, diarrhea, nausea or vomiting Genitourinary Genitourinary ED: Denies dysuria, hematuria or urinary frequency Musculoskeletal Musculoskeletal: Denies arthralgias or myalgias Integumentary Denies abscess or rash Neurologic Neurologic: Denies headache(s) or weakness Psychiatric Psychiatric: Reports depression, suicidal ideation and suicidal thoughts; Denies anxiety Endocrine Endocrinology: Denies polydipsia, polyphagia or polyuria Allergic/Immunologic Allergic/Immunologic ED: Denies mouth swelling, tongue swelling or urticaria EXAM Physical Exam Const Vital Signs: 12/12/23 22:48 12/12/23 22:47 Temperature 97.5 F L 97.5 F L Temperature Source Temporal Temporal Pulse Rate 90 90 Respiratory Rate 16 18 Blood Pressure 143/88 H 143/88 H Blood Pressure Mean 106 106 Pulse Ox 100 100 Oxygen Delivery Method Room Air Room Air Positive well nourished and well developed General Appearance ED: well developed HEENT Reports normocephalic, head/scalp atraumatic and moist mucous membranes Eyes PERRL and EOMs intact bilaterally Neck no lymphadenopathy, supple and no JVD Resp normal respiratory effort and clear to auscultation bilaterally Cardio regular rate, regular rhythm and no murmurs GI normal to inspection, nondistended, normoactive bowel sounds and non-tender Palpation: soft Back/Spine no CVA tenderness and normal ROM Extremity normal to inspection General Extremety ED: Negative for edema General Extremity: Negative for edema Neuro oriented x3 and CN's II-XII intact bilaterally Sensorium / Orientation: alert Motor Exam: strength 5/5 throughout Psych mental status grossly normal Appearance: grossly normal Attitude: calm Activity / Motor Behavior: appropriate eye contact Mood & Affect: depressed and constricted affect; Negative for tearful Thought Process: normal thought process Thought Content: suicidality and No homicidality Attention / Concentration: attention grossly intact Memory / Cognition: memory grossly intact Insight: fair Judgement: fair Skin no rashes or lesions noted and no wounds MDM MDM MDM Narrative Medical decision making narrative: Basic blood work was obtained. CBC shows no anemia white count 4.5 BMP shows a chloride of 111 creatinine 1.11 glucose 122 liver enzymes normal TSH 2.12 salicylates and acetaminophen negative. Toxicology positive for cannabinoids positive for MDMA (question cross-reactivity). Patient has had a sitter during his ED stay. I have asked crisis to evaluate the patient. History & Record Review Discussion w/independent historian: Patient Lab Data Attestation: I reviewed the patient's lab results. Labs: Laboratory Results - last 24 hr 12/12/23 12/13/23 23:51 00:24 WBC 4.5 RBC 5.33 Hgb 13.3 Hct 41.2 MCV 77.3 L MCH 25.0 L MCHC 32.3 RDW Std Deviation 40.0 RDW Coeff of Jackie 14.5 Plt Count 295 MPV 8.8 Immature Gran % (Auto) 0.200 Neut % (Auto) 38.9 L Lymph % (Auto) 44.4 H [place] % (Auto) 12.5 H Eos % (Auto) 3.1 Baso % (Auto) 0.9 Absolute Neuts (auto) 1.7 L Absolute Lymphs (auto) 1.99 Nucleated RBC % 0 Sodium 141 Potassium 3.5 Chloride 111 H Carbon Dioxide 26.0 Anion Gap 4 L BUN 12 Creatinine 1.11 Estim Creat Clear Calc 141.48 Est GFR (MDRD) Af Amer 106 Est GFR (MDRD) Non-Af 88 BUN/Creatinine Ratio 10.8 Glucose 122 H Calcium 8.9 Total Bilirubin 0.20 AST 14 L ALT 26 Alkaline Phosphatase 102 Total Protein 7.6 Albumin 3.8 Globulin 3.8 Albumin/Globulin Ratio 1.0 TSH 2.12 Salicylates < 1.7 L Urine Opiates Screen NEGATIVE Urine Methadone Screen NEGATIVE Acetaminophen < 2.0 L Ur Barbiturates Screen NEGATIVE Ur Phencyclidine Scrn NEGATIVE Ur Amphetamines Screen NEGATIVE MDMA (Ecstasy) Screen POSITIVE H U Benzodiazepines Scrn NEGATIVE Urine Cocaine Screen NEGATIVE U Cannabinoids Screen POSITIVE H Ur Drug Screen Comment Ethyl Alcohol < 3.0 EKG Initial EKG: Attestation: I personally reviewed and interpreted this EKG as follows: Comments: Normal sinus rhythm ventricular rate of 75 bpm. Discharge Plan Triage Chief Complaint: Suicidal ED Provider: Barry Lyn Dx/Rx/DC Orders Clinical Impression: Depression, Suicide attempt Prescriptions: No Action trazodone 100 mg PO QHS buspirone 5 mg tablet 5 mg PO BID aripiprazole [Abilify] 15 mg tablet 15 mg PO DAILY bupropion HCl [Wellbutrin SR] 150 mg tablet sustained-release 12 hr 150 mg PO DAILY Primary Care Provider: Care Physician,No Primary Referrals: Care Physician,No Primary [Primary Care Provider] -
[2023-12-12 23:18] VITALS: BMI 31.1
--- OUTSIDE RECORDS SUMMARY | 2023-12-12 23:28 | XMS RPT_ITS | CCD ---
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 MENDEL Arias Attending Zaira GE MD., DR. MENDEL Arias Primary Care Zaira coker Problems Problem Classification Problem Date Documented Da te Episodic/Chronic Poisoning by other medications and drugs (2 sources) Poisoning by antiallergic and antiemetic drugs, accidental (unintentional), initial encounter; Translations: [Poisoning by antiallergic and antiemetic drugs, accidental (unintentional), initial encounter] Onset: 08-06-2022 Episodic Results Test Name Value Interpretation Reference Range Facil ity Encounters Encounter Date Encounter Type Care Provider Facility Start: 10-07-2023 End: 10-07-2023 ambulatory Facility:[facility] Start: 08-07-2022 Telephone encounter Mendel yates MD Work Phone: [facility] Payers Date Payer Category Payer Self-pay Unknown [id number] Social History Date Type Detail Facility Tobacco smoking status TXIS Tobacco smoking consumption unknown [facility] Work Phone: Start: 2000 Sex Assigned At Not on file C [facility] Tobacco smoking status No Smoking Status Entered [facility] Sex Assigned At Male [facility] Progress note 10-07-2023 Note Date & Type Note Facility 10-07-2023 Note HNO ID: [id number] Author: Radha Cristina APRN.[facility] Service: ? Author Type: Nurse Practitioner Type: Progress Notes Filed: 10/07/2023 2:46 PM Note Text: This note was created using SlidePayriter. Subjective Sherine Hernandez is a 23 year old male. 23 year old male with no PMH presents for finger pain. Acute onset a couple days ago Right middle finger +swelling +redness +pocket of pus Denies known trauma or injury History of nail biter. Denies fever or chills Denies red streaking Right hand dominant. Endorses history of same in past The history is provided by the patient. No silk screen printing racker was used. Musculoskeletal Problem This is a new problem. The current episode started in the past 7 days. The problem occurs constantly. The problem has been unchanged. Pertinent negatives include no abdominal pain, anorexia, arthralgias, change in bowel habit, chest pain, chills, congestion, coughing, diaphoresis, fatigue, fever, headaches, joint swelling, myalgias, nausea, neck pain, numbness, rash, sore throat, swollen glands, urinary symptoms, vertigo, visual change, vomiting or weakness. Exacerbated by: touching and movement. He has tried nothing for the symptoms. The treatment provided no relief. No past medical history on file. No past surgical history on file. ALLERGIES Patient has no known allergies. MEDICATIONS ARIPiprazole (ABILIFY) 15 mg tablet Take 15 mg by mouth daily at bedtime. busPIRone (BUSPAR) 5 mg tablet Take 5 mg by mouth two times a day. traZODone (DESYREL) 100 mg tablet Take 100 mg by mouth daily at bedtime. buPROPion SR (WELLBUTRIN SR) 150 mg 12 hr tablet Take 150 mg by mouth once daily. buPROPion (WELLBUTRIN) 75 mg tablet Take 75 mg by mouth as needed. amoxicillin-clavulanate potassium (AUGMENTIN) 875-125 mg per tablet Take 1 tablet by mouth two times a day for 10 days. No family history on file. Social History Tobacco Use Smoking status: Former Types: Cigarettes Smokeless tobacco: Never Tobacco comments: Quit 3 years ago Review of Systems Constitutional: Negative for chills, diaphoresis, fatigue and fever. HENT: Negative for congestion and sore throat. Respiratory: Negative for cough. Cardiovascular: Negative for chest pain. Gastrointestinal: Negative for abdominal pain, anorexia, change in bowel habit, nausea and vomiting. Musculoskeletal: Negative for arthralgias, joint swelling, myalgias and neck pain. Right middle finger Skin: Negative for rash. Neurological: Negative for vertigo, weakness, numbness and headaches. Objective BP 152/81 Pulse 65 Temp 36.3 ?C (97.3 ?F) Resp 18 Wt 117.5 kg (259 lb) SpO2 100% Physical Exam Vitals and nursing note reviewed. Constitutional: General: He is not in acute distress. Appearance: Normal appearance. He is not ill-appearing, toxic-appearing or diaphoretic. HENT: Head: Normocephalic and atraumatic. Right Ear: External ear normal. Left Ear: External ear normal. Nose: Nose normal. No congestion or rhinorrhea. Mouth/Throat: Mouth: Mucous membranes are moist. Pharynx: Oropharynx is clear. No oropharyngeal exudate or posterior oropharyngeal erythema. Eyes: General: Right eye: No discharge. Left eye: No discharge. Extraocular Movements: Extraocular movements intact. Conjunctiva/sclera: Conjunctivae normal. Pupils: Pupils are equal, round, and reactive to light. Cardiovascular: Rate and Rhythm: Normal rate and regular rhythm. Pulses: Normal pulses. Heart sounds: Normal heart sounds. No murmur heard. No friction rub. No gallop. Pulmonary: Effort: Pulmonary effort is normal. No respiratory distress. Breath sounds: Normal breath sounds. No stridor. No wheezing, rhonchi or rales. Chest: Chest wall: No tenderness. Abdominal: General: Abdomen is flat. There is no distension. Palpations: Abdomen is soft. There is no mass. Tenderness: There is no abdominal tenderness. There is no guarding or rebound. Hernia: No hernia is present. Musculoskeletal: General: No swelling, tenderness, deformity or signs of injury. Normal range of motion. Cervical back: Normal range of motion and neck supple. No rigidity or tenderness. Right lower leg: No edema. Left lower leg: No edema. Comments: Right middle finger with scant purulence noted to medial lateral nail fold No abscess No red streaking +flexion +extension Brisk cap refill Lymphadenopathy: Cervical: No cervical adenopathy. Skin: General: Skin is warm and dry. Capillary Refill: Capillary refill takes less than 2 seconds. Coloration: Skin is not jaundiced or pale. Findings: No bruising, lesion or rash. Neurological: General: No focal deficit present. Mental Status: He is alert and oriented to person, place, and time. Cranial Nerves: No cranial nerve deficit. Sensory: No sensory deficit. Motor: No weakness. Coordination: Coordination normal. Gait: Gait normal. Deep T (more content not included)... [facility] Note 08-07-2022 Telephone Encounter - Chuy Booth RN - 08/07/2022 8:40 AM EDT Note Date & Type Note Facility 08-07-2022 Miscellaneous Notes Formattin g of this note is different from the original. See labs from [place]. Results EXTERNAL LAB (Order [id number]) Patient Info Patient Name Sex Sherine Brewer ([id number]) Male 2000 Scanned Documents View External Lab - Miscellaneous Lab [ID [id number]] documented in this encounter [facility] Note 07-08-2022 Telephone Encounter - Khushbu Silvestre LPN - 07/08/2022 8:49 AM EDTTelephone Encounter - Mari Jones PA-C - 07/08/2022 8:34 AM EDT Note Date & Type Note Facility 07-08-2022 Miscellaneous Notes Formattin g of this note might be different from the original. Lab results faxed to [facility] as instructed. Khushbu Silvestre LPN Please fax labs to [facility]. All testing negative. Mari Jones PA-C documented in this encounter [facility] Note 03-19-2022 Telephone Encounter - Khushbu Silvestre LPN - 03/19/2022 1:08 PM EDTTelephone Encounter - Messi Jones MD - 03/19/2022 12:11 PM EDT Note Date & Type Note Facility 03-19-2022 Miscellaneous Notes Confirmed with Marielena at [facility] that pt is a student there. Results and copy of this encounter faxed to [facility] as requested. Khushbu Silvestre LPN Check with [facility] and see if a patient of theirs. If so fax results to them and let them know all were negative. documented in this encounter [facility] Evaluation + Plan note Note Date & Type Note Facility Evaluation + Plan note No data available for this section [facility] Discharge instructions Note Date & Type Note Facility Hospital Discharge instructions No data available for this section [facility] Progress note Note Date & Type Note Facility Progress note No data available for this section [facility] Summary Purpose Family History No Family History Records FoundNo Family History Records Found Advance Directives No Advanced Directives Records FoundNo Advanced Directives Records Found Additional Source Comments Source Comments (unrecognize d section and content) In the event this informatio n is protected by the Federal Confidentiality of Alcohol and Drug Abuse Patient Records regulations: The Federal rules restrict any use of the information to criminally investigate or prosecute any alcohol or drug abuse patient.[facility] the event this information is protected by the Federal Confidentiality of Alcohol and Drug Abuse Patient Records regulations: The Federal rules restrict any use of the information to criminally investigate or prosecute any alcohol or drug abuse patient.[facility] the event this information is protected by the Federal Confidentiality of Alcohol and Drug Abuse Patient Records regulations: The Federal rules restrict any use of the information to criminally investigate or prosecute any alcohol or drug abuse patient.[facility] Reason for Visit (unrecogniz ed section and content) Reason Comments Results, Lab Care Team (unrecognized sect ion and content) Care Team Personnel Name: MENDEL GE MD Member Role: Primary Care Physician Address: Address: [address] [place] [phone] (unrecognized sect ion and content) No Status Records FoundNo Status Records Found INFORMATION SOURCE (unrecogn ized section and content) DATE CREATED AUTHOR AUTHOR'S ORGANIZ ATION 10/09/2023 [facility] FOR RECORDS PERTAINING TO PATIENTS WHO ARE OR HAVE BEEN ENROLLED IN A CHEMICAL DEPENDENCY/SUBSTANCEABUSE PROGRAM, SOME INFORMATION MAY BE OMITTED. This clinical summary was aggregated from multiple sources. Caution should be exercised in using it in the provision of clinical care. This summary normalizes information from multiple sources, and as a consequence, information in this document may materially change the coding, format and clinical context of patient data. In addition, data may be omitted in some cases. CLINICAL DECISIONS SHOULD BE BASED ON THE PRIMARY CLINICAL RECORDS. [employer] provides no warranty or guarantee of the accuracy or completeness of information in this document.
[2023-12-13 00:20] LABS: Absolute Lymphocyte Count 1.99 X10^3/uL (0.83-4.51); Absolute Neutrophil Count 1.7 X10^3/uL (2.0-7.7); Basophil# 0.04 X10^3/uL; Basophil% 0.9 % (0-1); Eosinophil# 0.14 X10^3/uL; Eosinophils% 3.1 % (0-5); Hematocrit 41.2 % (40-54); Hemoglobin 13.3 g/dL (13.0-16.5); Lymphocyte # 1.99 X10^3/ul (0.83-4.51); Lymphocyte % 44.4 % (19-41); Mean Corp Hgb Conc 32.3 g/dL (32-36); Mean Corpuscular Volume 77.3 fL (80-94); Mean Platelet Vol. 8.8 fl (6.2-12.0); Monocyte# 0.56 X10^3/uL; Monocyte% 12.5 % (0-10); NRBC Flagged by Analyzer 0 % (0-5); Neutrophil # 1.74 X10^3/uL (2.7-7.7); Neutrophil % 38.9 % (47-70); Platelet Count 295 K/mm3 (150-450); RBC Distribution Width CV 14.5 % (11.6-14.6); Red Blood Count 5.33 M/mm3 (4.6-6.2); White Blood Count 4.5 K/mm3 (4.4-11.0)
[2023-12-13 00:23] LABS: AST(SGOT) 14 U/L (15-37); Alanine Aminotransfer ALT/SGPT 26 U/L (16-61); Albumin, Serum 3.8 g/dL (3.2-5.0); Alkaline Phosphatase 102 U/L (45-117); Anion Gap 4 (5-15); BUN 12 mg/dL (7-18); BUN/Creat Ratio 10.8 RATIO (10-20); Calcium,Total 8.9 mg/dL (8.5-10.1); Chloride 111 mmol/L (98-107); Creatinine, Serum 1.11 mg/dL (0.70-1.30); EST Glomerular Filtration Rate 88 mL/min (>60); Est Glom Filt Rate - Afr Amer 106 mL/min (>60); Estimated Creatinine Clearance 141.48 ml/min; Globulin 3.8 g/dL (2.2-4.2); Glucose 122 mg/dL (74-106); Potassium 3.5 mmol/L (3.5-5.1); Protein, Total 7.6 g/dL (6.4-8.2); Sodium Level 141 mmol/L (136-145); Thyroid Stim Hormone (TSH) 2.12 uIU/mL (0.358-3.74)
[2023-12-13 00:42] LABS: Acetaminophen (Tylenol) Level < 2.0 ug/mL (10.0-30.0); Alcohol, Blood (Medical)-Serum < 3.0 mg/dL; Salicylate < 1.7 mg/dL (2.8-20.0)
[2023-12-13 00:48] LABS: Amphetamine Urine VISTA NEGATIVE (<1000 ng/mL); Barbiturate Urine VISTA NEGATIVE (< 200 ng/mL); Benzodiazepine Urine VISTA NEGATIVE (< 200 ng/mL); Cocaine Urine VISTA NEGATIVE (< 300 ng/mL); Ecstacy Urine VISTA POSITIVE (< 500 ng/mL); Methadone Urine VISTA NEGATIVE (< 300 ng/mL); PCP Urine VISTA NEGATIVE (< 25 ng/mL); THC Urine VISTA POSITIVE (< 50 ng/mL); Vista UDS pH Range 5
[2023-12-13 02:32] VITALS: PULSE 86; RESP 16; TEMP 36.2; O2SAT 96
--- NOTE | 2023-12-13 03:47 | ED.RN ---
PT ACCEPTED AT [facility]. DUAL UNIT DR. TREJO N2N [id number] [facility] TRANSPORTATION TO COME 6-7AM
--- NOTE | 2023-12-13 04:44 | ED.RN ---
Report given to Shania MARSHALL at [facility].
[2023-12-13 05:11] VITALS: BP 129/87; PULSE 74; RESP 16; TEMP 36.6; O2SAT 100
== END 2023-12-13 06:45 ==
LOC: ED 23:25
PROVIDERS: Emergency Provider Emergency Medicine; Visit Provider Emergency Medicine
DX: T14.91XA Suicide attempt, initial encounter (principal); F32.A Depression, unspecified; F17.290 Nicotine dependence, other tobacco product, uncomplicated; Z79.899 Other long term (current) drug therapy; X58.XXXA Exposure to other specified factors, initial encounter
CPT/HCPCS: 80053; 80307; 80320; 80329; 84443; 85025; 93005; 99285; G0480

== ENCOUNTER 2024-03-10 22:42 | Emergency (ER) | payer SELFPAY ==
[2024-03-10 22:43] VITALS: BP 162/79; PULSE 71; RESP 18; TEMP 36.4; O2SAT 99; BMI 30.9
--- NOTE | 2024-03-10 23:15 | CT_ITS ---
INDICATION: Pain EXAMINATION: CT BRAIN - CT Head or Brain W/O Contrast Injection TECHNIQUE: Multiple axial images were obtained of the head without intravenous contrast. A radiation dose optimization technique was used for this scan. IV Contrast dosage and agent: None. RADIATION DOSAGE (If Supplied By Facility): CTDIvol = ( 44.99 ) mGy, DLP = ( 812.98 ) mGycm COMPARISON: No relevant prior comparison study available FINDINGS: BRAIN PARENCHYMA: No intra- or extra-axial hemorrhage. No evidence of acute infarct. No intracranial mass or mass effect. There is preservation of the marcano/white matter interface. Posterior fossa structures are unremarkable. No parenchymal abnormality. CSF SPACES: No cerebral volume loss. No hydrocephalus. Basal cisterns are patent. CALVARIUM, SKULL BASE, PARANASAL SINUSES AND MASTOID AIR CELLS: The mastoid air cells and visualized paranasal sinuses are well aerated. The calvarium is intact. No discrete lytic or blastic abnormalities. ORBITS: Both globes, extraocular muscles, optic nerves and retrobulbar fat appear unremarkable. CT/Brain/Head without Contrast IMPRESSION: No acute intracranial finding. Electronically Signed: Juan David Hedrick MD at 23:50 EDT ,
--- NOTE | 2024-03-10 23:24 | EDS_ITS ---
HPI History of Present Illness Chief Complaint: Headache Narrative Narrative: 23-year-old male presenting with headache which she has had for about a week. He states has been taking a lot of dapt-foy-dozduqb medication for this and he describes it as migraine headache medicine. He thinks he might of Tylenol nightly is not sure. He does not have a history of migraines. States that headaches come and go. No history of head trauma. He does have light sensitivity and sound sensitivity. Denies fever or neck pain. [facility] Medical History No acute medical problems Physical exam, pre-employment Suicidal ideation Home Medications metoclopramide HCl 10 mg tablet (Reglan) 10 mg PO Q6H PRN nausea and vomiting #7 tabs 03/11/24 [Rx Last Taken Unknown] Allergy/AdvReac Type Severity Reaction Status Date / Time No Known Allergies Allergy Verified 03/10/24 22:45 Social History current occupational status: student Smoking Status: Current some day smoker tobacco type: e-cigarettes ROS ROS ED Constitutional Constitutional ED: Denies chills, fever(s) or sweats Eyes Eyes: Denies blurry vision or change in vision ENT ENT ED: Denies ear pain or sore throat Cardiovascular Cardiovascular: Denies chest pain, palpitations or racing heartbeat Respiratory/Chest Respiratory/Chest: Denies cough, dyspnea or sputum Gastrointestinal Gastrointestinal: Reports nausea; Denies abdominal pain, constipation, diarrhea or vomiting Genitourinary Genitourinary ED: Denies dysuria, hematuria or urinary frequency Musculoskeletal Musculoskeletal: Denies arthralgias, myalgias or neck pain Integumentary Denies abscess, Abrasions or rash Neurologic Neurologic: Reports headache(s); Denies paresthesias or weakness Psychiatric Psychiatric: Denies anxiety, depression, suicidal ideation or suicidal thoughts Endocrine Endocrinology: Denies polydipsia or polyuria EXAM Physical Exam Const Vital Signs: 03/10/24 22:43 Temperature 97.6 F L Temperature Source Temporal Pulse Rate 71 Respiratory Rate 18 Blood Pressure 162/79 H Blood Pressure Mean 106 Pulse Ox 99 Oxygen Delivery Method Room Air Positive well nourished General Appearance ED: NAD; Negative for pallor HEENT Reports normocephalic atraumatic Eyes PERRL and EOMs intact bilaterally Resp normal respiratory effort and clear to auscultation bilaterally Auscultation: Negative for rales, rhonchi or wheezes Cardio regular rate and regular rhythm Neuro oriented x3 and CN's II-XII intact bilaterally Neuro Narrative: No focal neurologic deficits. Sensorium / Orientation: awake and alert Motor Exam: strength 5/5 throughout Psych mental status grossly normal Skin General Skin Exam: Negative for jaundice or pallor MDM MDM MDM Narrative Medical decision making narrative: Patient feeling headache has had for about a week. Does not any focal neurologic deficits. Exam is otherwise unremarkable although also currently taking 2 much Tylenol after he showed me a picture on his phone of what he was taking. I did obtain an salicylate level as well and was both negative. LFTs are normal and renal function electrodes are normal as well. CBC does not show a low white blood cell count hemoglobin is normal platelets are normal. CT of the brain was obtained while patient was medicated with Reglan, Benadryl and this was negative. He was given a full dose of Toradol. On reevaluation he was sleeping comfortably in the room and requested something to eat. At this point I feel he stable for discharge home. Impression: 1. Headache 2. Nausea Lab Data Labs: Laboratory Results - last 24 hr 03/10/24 23:29 WBC 6.4 RBC 5.05 Hgb 12.4 L Hct 39.1 L MCV 77.4 L MCH 24.6 L MCHC 31.7 L RDW Std Deviation 41.2 RDW Coeff of Jackie 14.9 H Plt Count 306 MPV 9.9 Immature Gran % (Auto) 0.300 Neut % (Auto) 49.6 Lymph % (Auto) 39.3 Kaufman % (Auto) 8.4 Eos % (Auto) 1.9 Baso % (Auto) 0.5 Absolute Neuts (auto) 3.2 Absolute Lymphs (auto) 2.53 Nucleated RBC % 0 Sodium 142 Potassium 3.7 Chloride 115 H Carbon Dioxide 21.0 Anion Gap 6 BUN 13 Creatinine 1.30 Estim Creat Clear Calc 120.60 Est GFR (MDRD) Af Amer 88 Est GFR (MDRD) Non-Af 73 BUN/Creatinine Ratio 10.0 Glucose 101 Calcium 9.1 Total Bilirubin 0.20 Direct Bilirubin 0.08 AST 13 L ALT 22 Alkaline Phosphatase 99 Total Protein 7.4 Albumin 3.9 Globulin 3.5 Salicylates 18.0 Acetaminophen 7.0 L Radiography Diagnostic Testing: Clinical Impression(s) from Imaging Studies Brain CT 03/10/24 23:15 IMPRESSION: No acute intracranial finding. Electronically Signed: Juan David Hedrick MD at 23:50 EDT Reading Location ID and State: [address] [place] [address] Tel , Service support , Discharge Plan Triage Chief Complaint: Headache ED Provider: Billy Cole Dx/Rx/DC Orders Instructions: ED Headache Unspecified Prescriptions: New metoclopramide HCl [Reglan] 10 mg tablet 10 mg PO Q6H PRN (Reason: nausea and vomiting) Qty: 7 0RF Primary Care Provider: Care Physician,No Primary Referrals: [facility] [Provider Group] - 3-5 Days if not improving Care Physician,No Primary [Primary Care Provider] - Disposition Disposition: Home, Self Care Discharge Date/Time: 03/11/24 00:52
[2024-03-10] MEDS: 0.9% Normal Saline (1000mL) 1,000 ML 999 ML IV (23:26)
[2024-03-10] MEDS: DiphenhydrAMINE 50 MG/ML Syringe 25 MG IV (23:27)
[2024-03-10] MEDS: Metoclopramide 10 MG/2 ML Vial IV (23:28)
[2024-03-10 23:42] LABS: Absolute Lymphocyte Count 2.53 X10^3/uL (0.83-4.51); Absolute Neutrophil Count 3.2 X10^3/uL (2.0-7.7); Basophil# 0.03 X10^3/uL; Basophil% 0.5 % (0-1); Eosinophil# 0.12 X10^3/uL; Eosinophils% 1.9 % (0-5); Hematocrit 39.1 % (40-54); Hemoglobin 12.4 g/dL (13.0-16.5); Lymphocyte # 2.53 X10^3/ul (0.83-4.51); Lymphocyte % 39.3 % (19-41); Mean Corp Hgb Conc 31.7 g/dL (32-36); Mean Corpuscular Hgb 24.6 pg (27.0-32.0); Mean Corpuscular Volume 77.4 fL (80-94); Mean Platelet Vol. 9.9 fl (6.2-12.0); Monocyte# 0.54 X10^3/uL; Monocyte% 8.4 % (0-10); NRBC Flagged by Analyzer 0 % (0-5); Neutrophil % 49.6 % (47-70); Platelet Count 306 K/mm3 (150-450); RBC Distribution Width CV 14.9 % (11.6-14.6); RBC Distribution Width SD 41.2 fl (35.1-43.9); Red Blood Count 5.05 M/mm3 (4.6-6.2); White Blood Count 6.4 K/mm3 (4.4-11.0)
[2024-03-11 00:02] LABS: AST(SGOT) 13 U/L (15-37); Alanine Aminotransfer ALT/SGPT 22 U/L (16-61); Albumin, Serum 3.9 g/dL (3.2-5.0); Alkaline Phosphatase 99 U/L (45-117); Anion Gap 6 (5-15); BUN 13 mg/dL (7-18); Bilirubin, Direct 0.08 mg/dL (0.00-0.30); Calcium,Total 9.1 mg/dL (8.5-10.1); Chloride 115 mmol/L (98-107); EST Glomerular Filtration Rate 73 mL/min (>60); Est Glom Filt Rate - Afr Amer 88 mL/min (>60); Globulin 3.5 g/dL (2.2-4.2); Glucose 101 mg/dL (74-106); Potassium 3.7 mmol/L (3.5-5.1); Protein, Total 7.4 g/dL (6.4-8.2); Sodium Level 142 mmol/L (136-145)
[2024-03-11] MEDS: Ketorolac 10 MG Tablet PO (00:48)
== END 2024-03-11 00:52 | disposition home or self-care (01) ==
PROVIDERS: Emergency Provider Student in an Organized Health Care Education/Training Program; Visit Provider Student in an Organized Health Care Education/Training Program
DX: R51.9 Headache, unspecified (principal); R11.0 Nausea; F17.290 Nicotine dependence, other tobacco product, uncomplicated
CPT/HCPCS: 70450; 80048; 80076; 80329; 85025; 96361; 96374; 96375; 99283; J7030; A4216; G0480

== ENCOUNTER 2024-07-15 20:50 | Emergency (ER) | payer SELFPAY ==
[2024-07-15 20:50] VITALS: BP 146/130; PULSE 71; RESP 18; TEMP 36.7; O2SAT 98; BMI 29.0
--- NOTE | 2024-07-15 23:03 | EDS_ITS ---
HPI History of Present Illness Chief Complaint: Dental Informant: patient Narrative Narrative: 24-year-old male presenting to the emergency room with dental pain. Patient states that the left side of his face hurts really bad from dental pain of both the upper and the lower teeth. He states that for a long time he has had widespread pain but stating today he has had increasing pain in the left side. Is any fevers or facial swelling. He states he has no dentist because he has no dental insurance. He reports no difficulty opening or closing his mouth. No voice changes. He believes he has spit pieces of the tooth out today. [facility] Medical History Physical exam, pre-employment Suicidal ideation No acute medical problems Home Medications ?Medication ?Instructions ?Recorded ?Last Taken ?Type ibuprofen 600 mg tablet 600 mg PO Q6H PRN PRN pain #20 07/15/24 Unknown Rx TABLETS penicillin V potassium 250 mg 500 mg (2 x 250 mg) PO 4X/DAY #28 07/15/24 Unknown Rx tablet tabs tramadol 50 mg tablet 50 mg PO Q4H PRN PRN Pain 3 days 07/15/24 Unknown Rx #10 tabs Allergy/AdvReac Type Severity Reaction Status Date / Time No Known Allergies Allergy Verified 07/15/24 20:50 Social History current occupational status: student Smoking Status: Current some day smoker tobacco type: e-cigarettes ROS ROS ED Constitutional Constitutional ED: Denies chills, fever(s) or weight loss Eyes Eyes: Denies change in vision or diplopia ENT ENT ED: Reports other Details: Dental pain ; Denies ear pain, rhinorrhea or sore throat Cardiovascular Cardiovascular: Denies chest pain, orthopnea, palpitations or racing heartbeat Respiratory/Chest Respiratory/Chest: Denies cough, dyspnea or orthopnea Gastrointestinal Gastrointestinal: Denies abdominal pain, diarrhea, nausea or vomiting Genitourinary Genitourinary ED: Denies dysuria, hematuria or urinary frequency Musculoskeletal Musculoskeletal: Denies arthralgias or myalgias Integumentary Denies abscess or rash Neurologic Neurologic: Denies headache(s) or weakness Psychiatric Psychiatric: Denies anxiety, depression, suicidal ideation or suicidal thoughts Endocrine Endocrinology: Denies polydipsia, polyphagia or polyuria Allergic/Immunologic Allergic/Immunologic ED: Denies mouth swelling, tongue swelling or urticaria EXAM Physical Exam Const Vital Signs: 07/15/24 20:50 Temperature 98.1 F Temperature Source Temporal Pulse Rate 71 Respiratory Rate 18 Blood Pressure 146/130 H Blood Pressure Mean 135 Pulse Ox 98 Oxygen Delivery Method Room Air Positive well nourished and well developed General Appearance ED: well developed and NAD HEENT Reports normocephalic, head/scalp atraumatic and moist mucous membranes HEENT Narrative: Patient reports tenderness on palpation of both the upper and lower posterior molars on the left side. There is no trismus. Floor the mouth is soft Eyes PERRL and EOMs intact bilaterally Neck no lymphadenopathy, supple and no JVD Resp normal respiratory effort and clear to auscultation bilaterally Cardio regular rate, regular rhythm and no murmurs GI normal to inspection, nondistended, normoactive bowel sounds and non-tender Palpation: soft Back/Spine no CVA tenderness and normal ROM Extremity normal to inspection General Extremety ED: Negative for edema General Extremity: Negative for edema Neuro oriented x3 and CN's II-XII intact bilaterally Sensorium / Orientation: alert Motor Exam: strength 5/5 throughout Psych mental status grossly normal Mood & Affect: Negative for depressed or tearful Skin no rashes or lesions noted and no wounds MDM MDM MDM Narrative Medical decision making narrative: Differential diagnosis includes but not limited to dental abscess gingivitis ANUG Gianluca's angina dental caries dental fracture I can start the patient on penicillin and some anti-inflammatories a couple of Ultram give him dental resources list. He needs to follow-up with dentistry for definitive care History & Record Review Discussion w/independent historian: Patient Discharge Plan Triage Chief Complaint: Dental ED Provider: Barry Lyn Dx/Rx/DC Orders Clinical Impression: Pain, dental, Dental caries Instructions: ED Dental Pain Prescriptions: New penicillin V potassium 250 mg tablet 500 mg PO 4X/DAY Qty: 28 0RF ibuprofen 600 mg tablet 600 mg PO Q6H PRN PRN (Reason: pain) Qty: 20 0RF tramadol 50 mg tablet 50 mg PO Q4H PRN PRN (Reason: Pain) 3 Days Qty: 10 0RF Primary Care Provider: Care Physician,No Primary Referrals: Care Physician,No Primary [Primary Care Provider] - Print Language: Frisian Disposition Disposition: Home, Self Care
[2024-07-15] MEDS: Penicillin Vk 250 MG Tablet 500 MG PO (23:29)
[2024-07-15] MEDS: Ibuprofen 600 MG Tablet PO (23:29)
[2024-07-15] MEDS: traMADol 50 MG Tablet PO (23:29)
== END 2024-07-15 23:31 | disposition home or self-care (01) ==
LOC: ED 23:13
PROVIDERS: Emergency Provider Emergency Medicine; Visit Provider Emergency Medicine
DX: K08.89 Other specified disorders of teeth and supporting structures (principal); K02.9 Dental caries, unspecified; F17.290 Nicotine dependence, other tobacco product, uncomplicated
CPT/HCPCS: 99283